=== PATIENT | male | born 1985 | race Caucasian/White ===

== ENCOUNTER 2017-10-02 21:40 | Emergency (ER) | payer OTHER, MEDICAID ==
--- NOTE | 2017-10-02 23:03 | XRAY Preliminary Report ---
Exam: XR SHOULDER 3 VIEW RT IMPRESSION: Normal shoulder radiography. [facility] SITE ID: [id number]
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
[2017-10-02] MEDS ORDERED: IBUPROFEN 800 MG TABLET PO STA (23:23)
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
[2017-10-02 23:30] VITALS: BP 131/92
== END 2017-10-02 23:31 | disposition home or self-care (01) ==
LOC: ED 21:40
DX: S40.011A Contusion of right shoulder, initial encounter (principal); Y04.0XXA Assault by unarmed brawl or fight, initial encounter; F17.200 Nicotine dependence, unspecified, uncomplicated
CPT/HCPCS: 73030; 99283; A9270